=== PATIENT | female | born 1970 | race Caucasian/White ===

== ENCOUNTER 2023-12-24 11:33 | Emergency (ER) | payer BC ==
[~2023-12-24] VITALS: Ht 162.6 cm; Wt 123.2 kg
[~2023-12-24 11:33] MED LIST: ACETAMINOPHEN500 M5 PO; ADULT LOW DOSE81 MG PO; AMITRIPTYLINE H10 M2 PO; ATORVASTATIN CA80 MG PO; CLOPIDOGREL75 M2 PO; DULOXETINE30 MG PO; FUROSEMIDE20 MG PO; JANUVIA 100MG100 MG; JARDIANCE25 MG; LEVOFLOXACIN500 M1 PO; LEVOTHYROXIN0.025 MG PO; LISINOPRIL10 MG PO; METOPROLOL TAR100 M1 PO; METRONIDAZOLE500 M1 PO; NITROGLYCERIN0.4 M1 SL; PANTOPRAZOLE SO40 MG PO; VITAMIN D-40010 MCG
[2023-12-24] MEDS ORDERED: AMOXICILLIN AND1 TA2 PO (12:34)
[2023-12-24] MEDS ORDERED: ISOSORBIDE30 MG PO (12:34)
[2023-12-24] MEDS ORDERED: PREDNISONE10 MG PO (12:34)
[2023-12-24] MEDS ORDERED: EZETIMIBE10 M1 PO (12:35)
[2023-12-24] MEDS ORDERED: CELEXA 20MG20 MG/TA1 PO (12:35)
[2023-12-24] MEDS ORDERED: TOUJEO MAX300 UNIT/1 SQ (12:36)
[2023-12-24] MEDS ORDERED: ALBUTEROL1.25 MG/3 (12:38)
[2023-12-24] MEDS ORDERED: GUAIFEN-CODEINE5 ML PO (12:38)
[2023-12-24 14:02] LABS: BASO # 0.02 K/mm3 (0.02-0.10); EOS # 0.03 K/mm3 (0.04-0.40); EOS % 0.4 % (1.0-5.0); HEMATOCRIT 52.2 % (37.0-47.0); HEMOGLOBIN 16.4 g/dL (12.5-16.0); LYMPH# 1.34 K/mm3 (1.50-4.00); MEAN CELL VOLUME 89 fl (78-100); MEAN CORPUSCULAR HEMOGLOBIN 28 pg (27-31); MEAN CORPUSCULAR HGB CONC 31 g/dL (33-37); MEAN PLATELET VOLUME 12.1 fl (7.4-10.4); NEU # 5.63 K/mm3 (1.40-6.50); PLATELET COUNT 171 K/mm3 (130-400); RED CELL DISTRIBUTION WIDTH 14.5 % (11.5-14.5); WHITE BLOOD COUNT 7.3 K/mm3 (4.8-10.8)
[2023-12-24 14:06] LABS: ALBUMIN 3.8 g/dL (3.5-5.0)
[2023-12-24 14:07] LABS: CALCIUM 8.6 mg/dL (8.3-10.5)
[2023-12-24 14:08] LABS: TOTAL PROTEIN 6.3 g/dL (6.4-8.3)
[2023-12-24 14:10] LABS: TOTAL BILIRUBIN 0.5 mg/dL (0.2-1.2)
[2023-12-24] MEDS ORDERED: TAMIFLU 75MG75 MG PO (14:35)
[2023-12-24 15:29] VITALS: BP 122/73
== END 2023-12-24 15:30 | disposition home or self-care (01) ==
LOC: ED 11:33
PROVIDERS: Physician Assistant
DX: J10.1 Influenza due to other identified influenza virus with other respiratory manifestations (principal)